=== PATIENT | male | born 1950 | race Caucasian/White ===

== ENCOUNTER → 2020-02-06 | Outpatient (CLI) | payer MEDICARE ==
[2020-02-06 10:19] LABS: African American GFR (CKD) >90 (>60 ml/min/1.73 sqM); Blood Urea Nitrogen 23 mg/dL (9-20); Non-African American GFR(CKD) 83 (>60 ml/min/1.73 sqM)
--- NOTE | 2020-02-06 12:58 | CT ---
EXAMINATION TYPE: CT angio chest DATE OF EXAM: 02/06/2020 COMPARISON: None HISTORY: 69-year-old male Thoracic Aortic Aneurysm without rupture TECHNIQUE: Contiguous axial scanning of the chest performed without and with IV Contrast, patient inj ected with 100 mL of Isovue 370. Delayed coronal/sagittal MIP reconstructions performed. CT DLP: 733 mGycm Automated exposure control for dose reduction was used. FINDINGS: Heart normal size without pericardial effusion. Mild LAD calcifications are present. Mild aortic valv ular calcifications. Initial noncontrast images show no evidence for acute or intramural hematoma. No evidence for aortic dissection. Aortic root is aneurysmal at 4.7 cm. Lower ascending aorta aneurysmal at 4.0 cm. Proximal arch is ectatic at 3.8 cm. Upper descending thoracic aorta ectatic and 3.0 cm. Lower descending thoracic aorta is tortuous and ectatic at 2.7 cm. No thoracic lymphadenopathy by CT size criteria. Some prominent but nonenlarged axillary lymph nodes measure up to 1.2 cm. Right apical pleural-parenchymal scarring. Mild emphysematous change. Some strandy subpleural scarrin g peripheral right base. Additional strandy scarring or atelectasis posterior left lower lobe. No con solidation or pleural effusion. Visualized upper abdomen shows cholecystectomy clips. There is a large hiatal hernia with the majorit y of the stomach located in the lower chest. There seems to be some postsurgical change along the rig ht lateral wall of the stomach. Bones: ACF hardware. DISH mid and lower thoracic spine. Moderate degenerative disc disease throughout . IMPRESSION: 1. ANEURYSMAL AORTIC ROOT AT 4.7 CM. 2. MILD ANEURYSM ASCENDING AORTA AT 4.0 CM. 3. ECTATIC DESCENDING THORACIC AORTA MEASURING UP TO 3.0 CM. 4. COPD WITH MILD EMPHYSEMA. SOME RIGHT APICAL PLEURAL PARENCHYMAL SCARRING AND SOME ADDITIONAL PLEUR AL PARENCHYMAL SCARRING AT THE PERIPHERAL RIGHT BASE. 5. LARGE HIATAL HERNIA WITH SOME SURGICAL CHANGE ALONG THE RIGHT LATERAL WALL OF THE STOMACH. CLINICA LLY CORRELATE.
== END | disposition home or self-care (01) ==
LOC: RADCTMAIN 09:11
PROVIDERS: ATTEND Internal Medicine Cardiovascular Disease
DX: I71.2 Thoracic aortic aneurysm, without rupture (principal); J43.9 Emphysema, unspecified; K44.9 Diaphragmatic hernia without obstruction or gangrene; J94.8 Other specified pleural conditions; Z01.818 Encounter for other preprocedural examination; K46.9 Unspecified abdominal hernia without obstruction or gangrene; Z88.8 Allergy status to other drugs, medicaments and biological substances
CPT/HCPCS: 82565; 84520; 71275; 36415; Q9967

== ENCOUNTER 2020-02-08 12:51 | Day surgery (SDC) | payer MEDICARE ==
[2020-02-06 10:04] LABS: HCT 43.9 % (39.0-53.0); HGB 14.1 gm/dL (13.0-17.5); MCH 31.5 pg (25.0-35.0); MCHC 32.1 g/dL (31.0-37.0); MCV 98.3 fL (80.0-100.0); Mean Platelet Volume 7.1; Platelet Count 271 k/uL (150-450); RBC 4.46 m/uL (4.30-5.90); RDW 12.8 % (11.5-15.5); WBC 7.8 k/uL (3.8-10.6)
[2020-02-06 10:21] LABS: Potassium 4.7 mmol/L (3.5-5.1)
[2020-02-06 14:38] VITALS: BMI 29.8
--- NOTE | 2020-02-08 11:09 | P.GSHP ---
History of Present Illness H&P Date: 02/08/20 CHIEF COMPLAINT: Inguinal hernia, right. HISTORY OF PRESENT ILLNESS: The patient is a 69-year-old male who presents with a history of swelling and pain along the right groin. He has noted increased swelling including pain of the area. Now he presents for repair of his inguinal hernia. PAST MEDICAL HISTORY: Please see list. PAST SURGICAL HISTORY: Please see list. MEDICATIONS: Please see list. ALLERGIES: Please see list. SOCIAL HISTORY: No illicit drug use FAMILY HISTORY: No reports of Crohn disease or ulcerative colitis. REVIEW OF ORGAN SYSTEMS: CONSTITUTIONAL: No reports of fevers or chills. No reports of weight loss despite prior attempts. GI: Denies any blood in stools or constipation. PHYSICAL EXAM: VITAL SIGNS: Stable GENERAL: Well-developed pleasant in no acute distress. HEENT: No scleral icterus. Extraocular movements grossly intact. Moist buccal mucosa. NECK: Supple without lymphadenopathy. CHEST: Unlabored respirations. Equal bilateral excursions. CARDIOVASCULAR: Regular rate and rhythm. Distal 2+ pulses. ABDOMEN: Soft, nondistended. No peritoneal signs. Moderate tenderness right lower quadrant MUSCULOSKELETAL: No clubbing, cyanosis, or edema. ASSESSMENT: 1. Inguinal hernia, right PLAN: 1. Recommend proceeding robotic inguinal repair with mesh with possible bilateral approach. 2. Benefits and risks of surgical intervention was discussed including possibility of open technique. 3. DVT prophylaxis. 4. Antibiotic prophylaxis. Past Medical History Past Medical History: Asthma, Cancer, GERD/Reflux, Hypertension, Osteoarthritis (OA), Pulmonary Embolus (PE), Thyroid Disorder Additional Past Medical History / Comment(s): "dilated aorta", PE 10 yrs ago after esophagectomy-now has a "slow stomach", hx esophageal cancer, hx spinal stenosis, Hx kidney stone, hx infected gallstones, hx celilulitis x 2 , hx klebsiella infection 2009 History of Any Multi-Drug Resistant Organisms: None Reported Past Surgical History: Back Surgery, Cholecystectomy, Hernia Repair, Joint Replacement Additional Past Surgical History / Comment(s): esophagectomy, blaine knee replacements, inguinal hernia, umlbilical hernia, cervical fusion, cystoscopy, ERCP to remove gallstone Past Anesthesia/Blood Transfusion Reactions: Previous Problems w/ Anesthesia Additional Past Anesthesia/Blood Transfusion Reaction / Comment(s): "it takes a lot to put me out", states no diff intubation-some limitation in neck movement due to cervical fusion Smoking Status: Former smoker, Vaper - Past Family History Mother Family Medical History: Cancer Sister(s) Family Medical History: Cancer Medications and Allergies Home Medications Medication Instructions Recorded Confirmed Type ARIPiprazole [Abilify] 5 mg PO HS 02/06/20 02/06/20 History Baclofen 5 mg PO TID 02/06/20 02/06/20 History Cetirizine HCl [Zyrtec] 5 mg PO DAILY 02/06/20 02/06/20 History Cholecalciferol [Vitamin D3 (25 2,000 unit PO DAILY 02/06/20 02/06/20 History Mcg = 1000 Iu)] Irbesartan [Avapro] 150 mg PO DAILY 02/06/20 02/06/20 History L-5-Mthf 1 tab PO DAILY 02/06/20 02/06/20 History Lactobacillus Acidophilus 1 each PO BID 02/06/20 02/06/20 History [Acidophilus] Levothyroxine Sodium [Synthroid] 100 mcg PO DAILY 02/06/20 02/06/20 History Meloxicam 15 mg PO DAILY 02/06/20 02/06/20 History Montelukast [Singulair] 10 mg PO DAILY 02/06/20 02/06/20 History Omeprazole 40 mg PO BID 02/06/20 02/06/20 History Allergies Allergy/AdvReac Type Severity Reaction Status Date / Time steroids Allergy manic Uncoded 02/06/20 14:17 episodes Results - Labs 02/06/20 09:45 02/06/20 09:45
[~2020-02-08 12:51] MED LIST: HEPARIN SODIUM,PORCINE 5,000 UNIT/ML 1 ML VIAL SQ ONE; MIDAZOLAM 2 MG/2 ML VIAL IVP ONE
[2020-02-08] MEDS: LACTATED RINGERS 1,000 ML IV SCH (13:53)
[2020-02-08] MEDS ORDERED: LIDOCAINE 1% (10MG/ML) FOR IV START INTRADERMA ONE (13:53)
[2020-02-08] MEDS ORDERED: ONDANSETRON 4 MG/2 ML VIAL ONE (14:03)
[2020-02-08] MEDS: TAMSULOSIN 0.4 MG CAP.ER.24H PO STA ×4 (14:07→22:51)
[2020-02-08] MEDS: ACETAMINOPHEN TAB 500 MG TAB PO STA ×2 (14:07→21:43)
[2020-02-08] MEDS: GABAPENTIN 300 MG CAP PO STA ×2 (14:08→21:43)
[2020-02-08] MEDS ORDERED: ONDANSETRON 4 MG/2 ML VIAL IVP ONE (14:09)
[2020-02-08] MEDS ORDERED: fentaNYL (PF) 50 MCG/ML 2 ML AMP IVP ONE (14:37)
--- NOTE | 2020-02-08 15:01 | P.ANPRN ---
Procedure Note - Anesthesia - Nerve Block Performed Bilateral Transversus Abdominis Single Time Out Performed: Yes (1436) Date of Procedure: 02/08/20 Procedure Start Time: 14:37 Procedure Stop Time: 14:43 Location of Patient: PreOp Indication: Acute Post-Operative Pain, Requested by Surgeon Specifically requested for management of pain by : Meli Julien Sedation Type: Sedate with meaningful contact maintained Preparation: Sterile Prep Position: Supine Catheter: None Needle Types: Pajunk Needle Gauge: 21 Ultrasound used to visualize needle placement: Yes Ultrasound used to observe medication spread: Yes Injectate: 0.5% Ropivacaine (see comment for volume) (30CC TOTAL 15 EACH SIDE) Blood Aspirated: No Pain Paresthesia on Injection Noted: No Resistance on Injection: Normal Image Stored and Saved: Yes Events: Uneventful and Well Tolerated
[2020-02-08] MEDS ORDERED: ROCURONIUM BROMIDE 10 MG/ML 5 ML VIAL IV ONE (15:09)
[2020-02-08] MEDS ORDERED: fentaNYL (PF) 50 MCG/ML 2 ML AMP ONE (15:09)
[2020-02-08] MEDS ORDERED: SUCCINYLCHOLINE CHLORIDE 100 MG/5 ML SYR IV ONE (15:09)
[2020-02-08] MEDS ORDERED: PROPOFOL 10 MG/ML 20 ML VIAL IV ONE (15:09)
[2020-02-08] MEDS ORDERED: ROPIVACAINE 5 MG/ML 30 ML VIAL ONE (15:09)
[2020-02-08] MEDS ORDERED: LIDOCAINE 1% INJ 10MG/ML (20 ML MDV) ONE (15:09)
[2020-02-08] MEDS ORDERED: KETOROLAC 15 MG/ML 1 ML VIAL ONE (15:09)
[2020-02-08] MEDS ORDERED: MIDAZOLAM 2 MG/2 ML VIAL ONE (15:09)
[2020-02-08] MEDS ORDERED: GLYCOPYRROLATE 0.2 MG/ML 2 ML VIAL ONE (15:09)
[2020-02-08] MEDS ORDERED: NEOSTIGMINE 1 MG/ML 10 ML VIAL ONE (15:09)
[2020-02-08] MEDS ORDERED: SODIUM CHLORIDE 0.9% 100 ML BAG ONE (15:09)
[2020-02-08] MEDS ORDERED: BUPIVACAINE (PF) 0.25% 30 ML VIAL SQ ONE (16:02)
[2020-02-08] MEDS ORDERED: LACTATED RINGERS 1,000 ML IV ONE ×2 (16:52→20:15)
[2020-02-08] MEDS ORDERED: HYDROmorphone 0.5 MG/0.5 ML SYRINGE IVP ONE ×2 (17:11→17:24)
--- NOTE | 2020-02-08 17:44 | P.OP ---
Date of Procedure: 02/08/20 Description of Procedure: SURGEON: ERIN QUEZADA MD PREOPERATIVE DIAGNOSES: 1. Recurrent right inguinal hernia. 2. Chronic pain syndrome 3. Hypertensive heart disease 4. Thoracic aneurysm 5. History of esophageal cancer status post resection 6. Gastroesophageal reflux disease 7. Asthma 8. Depressive disorder 9. Hypothyroidism POSTOPERATIVE DIAGNOSES: 1. Recurrent right inguinal hernia. 2. Chronic pain syndrome 3. Hypertensive heart disease 4. Thoracic aneurysm 5. History of esophageal cancer status post resection 6. Gastroesophageal reflux disease 7. Asthma 8. Depressive disorder 9. Hypothyroidism 10. Intra-abdominal adhesions OPERATION: 1. Robotic-assisted da Yanira Xi laparoscopic right inguinal hernia repair with mesh, 11.[address] 2. Excision of right inguinal lipoma, 3 x 3 cm 3. Robotic-assisted da Yanira Xi laparoscopic lysis of adhesions ANESTHESIA: General with local anesthetic ESTIMATED BLOOD LOSS: 5 mL. SPECIMENS REMOVED: Right inguinal hernia lipoma COMPLICATIONS: None. FINDINGS: 1. Nyhus type 4 recurrent right inguinal hernia, direct, 2 cm 2. Non-absorbable 2-0 VLOC used 3. 1 cm left direct inguinal hernia, recurrent 4. Less than 1 cm recurrent umbilical hernia 5. Intra-abdominal adhesions right upper quadrant, right lower quadrant, left upper quadrant from previous multiple surgeries INDICATIONS: The patient is a 69-year-old gentleman who presents with history of right groin pain and previous repair now with recurrent. Now presents for definitive surgical intervention. Laparoscopic versus open and robotic approaches were discussed. Benefits and risks including bleeding, infection, injury to the vas deferens as well as sterility and chronic groin pain were reviewed. Placement of mesh was also described. Informed consent was obtained. DESCRIPTION: In the preoperative area, the patient was marked with indelible marker along the inguinal hernia. The patient was brought to the operating room and initially laid in supine position. The abdomen had been prepped and draped in standard sterile fashion. Ioban draping was also placed. Prior to incision, a timeout protocol was confirmed with surgical team regarding patient's name including procedures to be performed and location along the right groin. Initial positioning for the robotic assisted ports were selected whereby 20 cm superior to the target anatomy, 0 degree 5 mm laparoscopic trocar entry was performed at the left upper quadrant. The abdomen was insufflated to 15 mmHg which he had tolerated well. Diagnostic laparoscopy demonstrated a indirect inguinal hernia along the right groin. Next, along the epigastrium, 8 mm robot trocar was placed. An 8-mm robotic trocar was placed under direct visualization at the right upper quadrant. An 8 mm port was placed at the left upper quadrant. All trocars were positioned between 8 to 10-cm apart from each other. The [employer] XI robot was primed, draped, prepared for docking along the right side of the patient. The patient was placed in Trendelenberg position 16-degrees. I then went to the [employer] Xi console. The after school program assistant was at bedside for exchange of the robot arms and equipment. Moderate adhesions were found along the bilateral upper abdominal wall which are addressed using vessel sealer and scissors with cautery. A 1 cm recurrent direct inguinal Hernia was identified along the left groin. The left groin was scarred by the sigmoid colon. The right inguinal hernia sac was evaginated whereby the peritoneum was scored using Endo scissors with cautery. Once completely reduced into the abdominal cavity, the peritoneal sac of the hernia was stripped along a direct inguinal hernia and a lipoma and sac was resected and then passed off for further pathological analysis. The size of the hernia defect was 2 cm with intraoperative films obtained. Size of inguinal lipoma 3 x 3 cm also resected. Using a 2-0 VLOC, the peritoneal defect of the right inguinal hernia site was closed using a pursestring suture. The defect was found to be completely closed with complete reduction of the right direct inguinal hernia was confirmed. As an onlay, an 11.[address] mesh by [id number] was initially cut in half and entered into the abdominal cavity via the 8 mm trocar. The mesh was tacked to the pelvis using 2-0 VLOC nonabsorbable 9-inch length sutures. The robot was undocked from the patient's bedside. I then rescrubbed into the case. Insufflation was released from the abdominal cavity and all instruments were removed from the abdominal cavity. The rest of incisions were reapproximated using 4-0 Monocryl in a running subcuticular fashion. Local anesthetic was placed along the incision including for a right groin block. Incisions were cleansed using dilute hydrogen peroxide. Liquid glue was applied to the skin. At the end of the procedure, the needle, sponge and instrument counts had been verified correct by the bicycle repair technician. The patient had tolerated the procedure well and was taken to the postanesthesia care unit in stable condition.
[2020-02-08] MEDS ORDERED: HYDROcodone/APAP 5-325MG 1 EACH TAB ONE (17:45)
[2020-02-08] MEDS ORDERED: HYDROcodone/APAP 5-325MG 1 EACH TAB PO ONE (17:47)
[2020-02-08] MEDS ORDERED: TAMSULOSIN 0.4 MG CAP.ER.24H PO ONE (20:15)
[2020-02-08] MEDS ORDERED: ACETAMINOPHEN IV (For NPO) 1,000 MG in EMPTY BAG 1 BAG IVPB ONE (20:16)
[2020-02-08] MEDS ORDERED: NALOXONE 0.4 MG/ML 1 ML VIAL IV PRN (20:16)
[2020-02-08] MEDS ORDERED: ONDANSETRON 4 MG/2 ML VIAL IVP PRN (20:16)
--- NOTE | 2020-02-08 20:25 | P.PN ---
Progress Note - Text Progress Note Date: 02/08/20 Patient reports pre-existing urinary retention with all procedures. Will observe for postoperative urinary retention. Additional dose of Flomax tonight and in the morning. Assessment for pain medication
[2020-02-08] MEDS ORDERED: ARIPiprazole 5 MG TAB PO SCH (21:00)
[2020-02-08] MEDS: HYDROmorphone 1 MG/ML 1 ML SYRINGE IVP PRN (22:17)
[2020-02-08] MEDS: BACLOFEN 10 MG TAB PO SCH (22:17)
[2020-02-08] MEDS: PANTOPRAZOLE 40 MG/10 ML VIAL IV SCH (22:21)
[2020-02-08] MEDS: HYDROcodone/APAP 5-325MG 1 EACH TAB PO PRN (23:56)
[2020-02-09] MEDS: HYDROmorphone 1 MG/ML 1 ML SYRINGE IVP PRN ×2 (03:33→09:21)
[2020-02-09] MEDS: HYDROcodone/APAP 5-325MG 1 EACH TAB PO PRN (05:00)
[2020-02-09] MEDS: LACTATED RINGERS 1,000 ML IV SCH (06:11)
[2020-02-09] MEDS ORDERED: LEVOTHYROXINE 100 MCG TAB PO SCH (06:30)
[2020-02-09] MEDS ORDERED: TAMSULOSIN 0.4 MG CAP.ER.24H PO SCH (08:30)
[2020-02-09] MEDS ORDERED: MONTELUKAST 10 MG TAB PO SCH (09:00)
[2020-02-09] MEDS ORDERED: ENOXAPARIN 40 MG/0.4 ML SYRINGE SQ SCH (09:00)
[2020-02-09] MEDS ORDERED: LORATADINE 10 MG TAB PO SCH (09:00)
[2020-02-09] MEDS ORDERED: MELOXICAM 7.5 MG TAB PO SCH (09:00)
[2020-02-09] MEDS ORDERED: PANTOPRAZOLE 40 MG/10 ML VIAL IV SCH (09:00)
[2020-02-09] MEDS ORDERED: LOSARTAN 50 MG TAB PO SCH (09:00)
[2020-02-09] MEDS: BACLOFEN 10 MG TAB PO SCH (09:11)
[2020-02-09] MEDS: PANTOPRAZOLE 40 MG/10 ML VIAL IV SCH (09:12)
[2020-02-09 10:18] VITALS: BP 106/69; PULSE 71; RESP 16; TEMP 97.4
--- NOTE | 2020-02-09 11:33 | P.DS ---
Providers Expected date of discharge: 02/09/20 Attending physician: Meli Julien Consults: 02/08/20 11:10 Consult Physician Routine Consulting Provider: [facility] Consult Reason/Comments: Abdominal wall block Do you want consulting provider notified?: Yes Primary care physician: Evens Soriano Hospital Course: Discharge diagnosis 1. Recurrent right inguinal hernia. 2. Chronic pain syndrome 3. Hypertensive heart disease 4. Thoracic aneurysm 5. History of esophageal cancer status post resection 6. Gastroesophageal reflux disease 7. Asthma 8. Depressive disorder 9. Hypothyroidism 10. Intra-abdominal adhesions Hospital course The patient is a 69-year-old male who presents with a history of swelling and pain along the right groin. He has noted increased swelling including pain of the area. Patient underwent Robotic-assisted da Yanira Xi laparoscopic right inguinal hernia repair with mesh, 11.[address], Excision of right inguinal lipoma, 3 x 3 cm and Robotic-assisted da Yanira Xi laparoscopic lysis of adhesions with Dr. Sanchez. Patient tolerated surgery well. He's been up and ambulating. He reports passing gas. He is tolerating diet. Pain is controlled. He is stable for discharge. Physician Traffic Division Commanding Officer note has been reviewed by physician. Signing provider agrees with the documented findings, assessment, and plan of care. Patient Condition at Discharge: Stable Plan - Discharge Summary Discharge Rx Participant: Yes New Discharge Prescriptions: New Tamsulosin [Flomax] 0.4 mg PO DAILY #7 cap Acetaminophen Tab [Tylenol Tab] 500 mg PO Q6H PRN #30 tablet PRN Reason: Pain Continue Lactobacillus Acidophilus [Acidophilus] 1 each PO BID Cetirizine HCl [Zyrtec] 5 mg PO DAILY Cholecalciferol [Vitamin D3 (25 Mcg = 1000 Iu)] 2,000 unit PO DAILY Levothyroxine Sodium [Synthroid] 100 mcg PO DAILY Irbesartan [Avapro] 150 mg PO DAILY ARIPiprazole [Abilify] 5 mg PO HS Omeprazole 40 mg PO BID Meloxicam 15 mg PO DAILY Baclofen 5 mg PO TID Montelukast [Singulair] 10 mg PO DAILY L-5-Mthf 1 tab PO DAILY HYDROcodone/APAP 5-325MG [Towner 5-325] 1 tab PO DAILY PRN PRN Reason: Mild Pain Discharge Medication List ARIPiprazole [Abilify] 5 mg PO HS 02/06/20 [History] Baclofen 5 mg PO TID 02/06/20 [History] Cetirizine HCl [Zyrtec] 5 mg PO DAILY 02/06/20 [History] Cholecalciferol [Vitamin D3 (25 Mcg = 1000 Iu)] 2,000 unit PO DAILY 02/06/20 [History] Irbesartan [Avapro] 150 mg PO DAILY 02/06/20 [History] L-5-Mthf 1 tab PO DAILY 02/06/20 [History] Lactobacillus Acidophilus [Acidophilus] 1 each PO BID 02/06/20 [History] Levothyroxine Sodium [Synthroid] 100 mcg PO DAILY 02/06/20 [History] Meloxicam 15 mg PO DAILY 02/06/20 [History] Montelukast [Singulair] 10 mg PO DAILY 02/06/20 [History] Omeprazole 40 mg PO BID 02/06/20 [History] Acetaminophen Tab [Tylenol Tab] 500 mg PO Q6H PRN #30 tablet 02/08/20 [Rx] HYDROcodone/APAP 5-325MG [Towner 5-325] 1 tab PO DAILY PRN 02/08/20 [History] Tamsulosin [Flomax] 0.4 mg PO DAILY #7 cap 02/08/20 [Rx] Follow up Appointment(s)/Referral(s): Meli Julien MD [STAFF PHYSICIAN] - 02/22/20 (Telehealth is available) Patient Instructions/Handouts: *Surgery [facility] - (Anesthesia) Discharge Instructions Outpatient Surgery, Laparoscopic Herniorrhaphy (IP), Inguinal Hernia Repair (DC) Activity/Diet/Wound Care/Special Instructions: PLEASE TAKE HOME PAIN MEDICATIONS. NOTIFY YOUR PAIN PROVIDER FOR ADJUSTMENT OF NARCOTICS No lifting over 10 pounds in 2 weeks until Feb 21October shower. No bath tub soaks for two weeks until Feb 21 Diet as tolerated. Use Tylenol and ibuprofen or Aleve scheduled for the next 24-48 hours for best pain relief. Use ice along incisions for the today to prevent swelling. Discharge Disposition: HOME SELF-CARE
--- NOTE | 2020-02-10 16:19 | CONS ---
CONSULTATION DATE OF CONSULTATION: 02/09/2020 CHIEF COMPLAINT: Right inguinal hernia. HISTORY OF PRESENT ILLNESS: This gentleman is coming in for an elective right inguinal herniorrhaphy. He has been doing well of late. REVIEW OF SYSTEMS: He has had no recent headaches, neurologic problems, difficulty with vision or hearing, chest pain, shortness of breath, cough, hemoptysis, sputum production, murmurs, rheumatic fever, orthopnea, PND, abdominal pain, nausea, vomiting, hematemesis, melena, hematochezia, jaundice, hepatitis, cirrhosis, renal failure, hematuria, frequency or urgency, dysuria, incontinence, etc. Past medical history, family history and personal and social histories reveal that he has had a previous history of esophageal cancer in 2009. He has also had hepatitis. He has had hypothyroidism. Surgically, he has had a cholecystectomy and several herniorrhaphy. He has had bilateral knee replacements along with the esophagectomy. ALLERGIES: HE IS ALLERGIC TO BETA-BLOCKERS AND HAS DIFFICULTY TAKING STEROIDS. MEDICATIONS INCLUDE: Baclofen 10 mg t.i.d., bupropion XL 300 mg once a day, aripiprazole 5 mg once a day, meloxicam 15 mg once a day, Ultram 50 mg q.6 p.r.n., levothyroxine 0.1 mg a day, montelukast 10 mg a day, irbesartan 150 mg once a day, omeprazole 40 mg twice a day, and trazodone 100 mg HS. SOCIAL HISTORY: He is an everyday smoker, but does not drink. PHYSICAL EXAMINATION: Blood pressure 120/80, pulse 77, respirations 16 and he is afebrile. General he appeared to be well developed, well nourished, in no acute distress. Skin color is normal. Skin is warm and dry. He had multiple tattoos. Head, ears, eyes, nose, mouth, and throat were normal. Neck veins were not distended and carotids are normal. There are no bruits. Chest is clear to auscultation and percussion. Cardiac exam demonstrated normal sinus rhythm and no murmurs or extra sounds. Abdomen is soft and nontender without visceromegaly or masses. Bowel sounds present. Extremities are normal. Neurologically is intact. He is admitted to the hospital with the diagnoses of: 1. Right inguinal hernia. 2. Hypertension. 3. Bipolar depression. 4. Hypothyroidism. 5. History of carcinoma of the esophagus. RECOMMENDATIONS: None. MMODL / IJN: [id number] /
== END 2020-02-09 11:30 | disposition home or self-care (01) ==
LOC: OR 12:51 → 1SOBS 16:50 → OR 02-09 11:30
PROVIDERS: ATTEND Surgery Plastic and Reconstructive Surgery
DX: K40.91 Unilateral inguinal hernia, without obstruction or gangrene, recurrent (principal); K66.0 Peritoneal adhesions (postprocedural) (postinfection); D17.79 Benign lipomatous neoplasm of other sites; J45.909 Unspecified asthma, uncomplicated; K21.9 Gastro-esophageal reflux disease without esophagitis; I11.9 Hypertensive heart disease without heart failure; K31.89 Other diseases of stomach and duodenum; I71.2 Thoracic aortic aneurysm, without rupture; E03.9 Hypothyroidism, unspecified; G89.4 Chronic pain syndrome; F31.9 Bipolar disorder, unspecified; F17.290 Nicotine dependence, other tobacco product, uncomplicated; M19.90 Unspecified osteoarthritis, unspecified site; F43.10 Post-traumatic stress disorder, unspecified; Z86.711 Personal history of pulmonary embolism; Z85.01 Personal history of malignant neoplasm of esophagus; Z87.442 Personal history of urinary calculi; Z86.19 Personal history of other infectious and parasitic diseases; Z90.49 Acquired absence of other specified parts of digestive tract; Z96.653 Presence of artificial knee joint, bilateral; Z98.1 Arthrodesis status; Z98.890 Other specified postprocedural states; Z80.9 Family history of malignant neoplasm, unspecified; Z97.2 Presence of dental prosthetic device (complete) (partial); Z79.1 Long term (current) use of non-steroidal anti-inflammatories (NSAID); Z79.890 Hormone replacement therapy; Z79.899 Other long term (current) drug therapy; Z79.891 Long term (current) use of opiate analgesic; Z88.8 Allergy status to other drugs, medicaments and biological substances
CPT/HCPCS: 64488; 80051; 85027; 49651; C1781; J2250; J0690; J2405; J1650; J3010; J1170 ×3; C9113 ×2